=== PATIENT | male | born 1995 ===

== ENCOUNTER 2018-06-05 19:14 | Emergency (ER) | payer BC, OTHER ==
[~2018-06-05] VITALS: Ht 165.1 cm; Wt 61.2 kg
--- NOTE | 2018-06-05 19:45 | NUR ---
PT SITTING UP AT BEDSIDE, C-COLLAR IN PLACE. ICE PACK GIVEN AND APPLIED TO POSTERIOR NECK, UPPER BACK. FATHER PRESENT AT BEDSIDE. IV IN PLACE AND PT AWAITING CT SCAN
[2018-06-05] MEDS ORDERED: morphine 4 MG/ML inj SYRINge IV ONE ×2 (19:55→21:05)
[2018-06-05] MEDS ORDERED: ondansetron/PF 4mg/2ml inj IV ONE (19:55)
--- NOTE | 2018-06-05 19:56 | NUR ---
PT FELL FROM TREE WHEN BRANCH BROKE, FALLING APPROX 8 FEET ONTO BACK. NO LOC PER PT BUT FEELS "CONCUSSED". PT WITH PINPOINT TENDERNESS TO LOWER C SPINE, UPPER T SPINE WITH MUSCLE SPASM NOTED ALONG ALL OF SPINE. STATES HAS PAIN EXTENDING AROUND TO CHEST.
--- NOTE | 2018-06-05 20:26 | NUR ---
RETURN FROM CT, PAIN IMPROVED TO 7/10 BUT TOLERABLE.
[2018-06-05 20:53] LABS: BASOPHILS % (AUTO) 0.3 % (0-1); EOSINOPHILS # (AUTO) 0.1 X10'3 (0-0.9); EOSINOPHILS % (AUTO) 1.5 % (0-6); HEMATOCRIT 41.4 % (42.0-52.0); HEMOGLOBIN 14.1 g/dl (14.0-17.9); LYMPHOCYTES # (AUTO) 2.8 X10'3 (1.1-4.8); LYMPHOCYTES % (AUTO) 29.5 % (21-51); MEAN CORPUSCULAR HEMOGLOBIN 30.2 PG (27.0-31.0); MEAN CORPUSCULAR HGB CONC 34.1 g/dL (33.0-36.5); MEAN CORPUSCULAR VOLUME 88.3 FL (78-98); MEAN PLATELET VOLUME 8.7 FL (7.4-10.4); MONOCYTES # (AUTO) 0.6 X10'3 (0-0.9); MONOCYTES % (AUTO) 6.6 % (2-12); NEUTROPHILS # (AUTO) 5.8 X10'3 (1.8-7.7); NEUTROPHILS % (AUTO) 62.1 % (42-75); PLATELET COUNT 195 X10'3 (140-440); RED BLOOD COUNT 4.69 X10'6 (4.70-6.10); WHITE BLOOD COUNT 9.4 X10'3 (4.5-11.0)
[2018-06-05 20:59] VITALS: BP 160/99
[2018-06-05 21:02] LABS: INR 1.1 INR; PROTHROMBIN TIME 10.7 SECONDS (9.0-12.0)
[2018-06-05 21:04] LABS: ALANINE AMINOTRANSFERASE 45 U/L (12-78); ALBUMIN 4.8 G/DL (3.4-5.0); ALBUMIN/GLOBULIN RATIO 2.1 (1.1-1.5); ALKALINE PHOSPHATASE 70 IU/L (46-116); ANION GAP 7 (8-16); ASPARTATE AMINO TRANSFERASE 39 U/L (10-37); BILIRUBIN,TOTAL 0.3 MG/DL (0.1-1.0); BLOOD UREA NITROGEN 28 MG/DL (7-18); BUN/CREATININE RATIO 24.8 (5.4-32.0); CALCIUM 9.2 MG/DL (8.5-10.1); CHLORIDE 104 MMOL/L (99-107); CREATININE 1.13 MG/DL (0.60-1.10); GLUCOSE 101 MG/DL (70-104); POTASSIUM 3.9 MMOL/L (3.5-5.1); SODIUM 138 MMOL/L (135-145); TOTAL CARBON DIOXIDE 26.6 MMOL/L (24-32); TOTAL PROTEIN 7.1 G/DL (6.4-8.2); eGFR 82 ML/MIN
--- NOTE | 2018-06-05 21:39 | NUR ---
CALLED [facility] AT 21:41 FOR ETA ON PICKN UP. [facility] SAID 30 MINS
== END 2018-06-05 22:00 | disposition short-term general hospital (02) ==
LOC: ER 19:15
DX: S12.600A Unspecified displaced fracture of seventh cervical vertebra, initial encounter for closed fracture (principal); Z90.49 Acquired absence of other specified parts of digestive tract; W17.89XA Other fall from one level to another, initial encounter; Y93.89 Activity, other specified; Y92.89 Other specified places as the place of occurrence of the external cause; Y99.8 Other external cause status
CPT/HCPCS: 36415; 70450; 71250; 72127; 72128; 74176; 80053; 85025; 85610; 96374; 96375; 96376; 99285; J2270; J2405; 99284